=== PATIENT | female | born 2000 | race Hispanic/Latino ===

== ENCOUNTER 2018-04-19 08:56 | Emergency (ER) | payer SELFPAY ==
[2018-04-19 10:13] LABS: #Basophils 0.1 thou/uL (0.0-0.2); #Eosinphils 0.1 thou/uL (0.0-0.7); #Monocytes 0.5 thou/uL (0.11-0.59); #Neutrophils 6.2 thou/uL (1.40-6.50); %Basophils 1.1 % (0.0-1.0); %Eosinophils 1.6 % (0.0-10.0); %Lymphocytes 13.1 % (28.0-48.0); %Monocytes 6.3 % (0.0-4.0); Hemoglobin 6.9 g/dL (12.0-16.0); Mean Corpuscular HGB CONC 29.4 g/dL (32.0-36.0); Mean Corpuscular Hemoglobin 18.7 pg (25.0-35.0); Mean Corpuscular Volume 63.5 fL (78.0-98.0); Mean Platelet Volume 11.3 fL (7.4-10.4); Platelet Count 368 thou/uL (130-400); RBC Distribution Width 19.6 % (11.5-14.5); Red Blood Cell (RBC) Count 3.71 mill/uL (4.00-5.20)
[2018-04-19 10:25] LABS: Bilirubin Negative (Negative); Blood, Urine Negative (Negative); Glucose, Urine (Dipstick) Negative (Negative); Leukocyte Negative (Negative); Nitrite Negative (Negative); Protein, Urine (Dipstick) Negative (Neg-Trace); Urobilinogen 0.2 mg/dL (0.2-1.0)
[2018-04-19 10:27] LABS: Clarity Clear (Clear); Specific Gravity, Urine 1.007 (1.002-1.036)
[2018-04-19 10:33] LABS: Reflex for Review?? YES
[2018-04-19 10:34] LABS: Hypochromia MODERATE=16-30 cells (100X) (0-5/hpf); MDiff Complete? YES; Microcytosis MARKED = >30 cells (100X) (0-5/hpf); Ovalocytes SLIGHT = 2-5 cells (100X) (0-1/hpf); PLT Morphology Comment Appears Adequate; Polychromasia SLIGHT = 2-3 cells (100X) (0-2/hpf); Tear Drops SLIGHT = 2-5 cells (100X) (0-1/hpf)
[2018-04-19 10:36] LABS: ALT (SGPT) 8 U/L (8-55); AST (SGOT) 15 U/L (5-34); Alkaline Phosphatase 43 U/L (40-150); Anion Gap 13 mmol/L (10-20); BUN (Urea Nitrogen) 8 mg/dL (7.0-18.7); Bilirubin, Total 0.2 mg/dL (0.2-1.2); Calc. Creatinine Clearance 0 mL/min (70-130); Calcium 9.5 mg/dL (7.8-10.44); Carbon Dioxide 21 mmol/L (22-29); Chloride 106 mmol/L (98-107); Estimated GFR-MDRD Greater than 90; Globulin 3.1 g/dL (2.4-3.5); Glucose 110 mg/dL (70-105); Potassium 3.6 mmol/L (3.5-5.1); Protein, Total 7.1 g/dL (6.0-8.3); Sodium 136 mmol/L (136-145)
--- NOTE | 2018-04-19 10:49 | ULT ---
OB ULTRASOUND: HISTORY: Right-sided pelvic pain. DATE 04/19/18. FINDINGS: Multiple longitudinal and transverse images of the pelvis are obtained using a multihertz curvilinea r transducer. Real-time, color flow, and M-mode and spectral waveform Doppler analysis was used to e valuate the pelvis. Images demonstrate a viable intrauterine with the fetus in the cephalic presentation. The placenta is posterior. Biparietal diameter 31 mm, 15 weeks 5 days Head circumference 118 mm, 15 weeks 6 days Abdominal circumference 86 mm, 14 weeks 6 days Femur length 16 mm, 14 weeks 6 days Composite age equals 15 weeks 2 days with an estimated date of delivery of October 09, 2018. Cardiac activity measures 155 b.p.m. The placenta is posterior and the fetus is in the cephalic pres entation. IMPRESSION: 1. Viable intrauterine . 2. Visualization of the right ovary. The left ovary is not visualized. Cervical length measures 2. 9 cm. No evidence of placenta previa or abruption is seen. POS: [facility]
== END 2018-04-19 11:31 | disposition home or self-care (01) ==
LOC: ERS 08:56
DX: O99.89 Other specified diseases and conditions complicating pregnancy, childbirth and the puerperium (principal); R10.31 Right lower quadrant pain; F32.9 Major depressive disorder, single episode, unspecified; Z3A.15 15 weeks gestation of pregnancy
CPT/HCPCS: 36415; 76815; 80053; 81003; 84702; 85025; 85060; 87086

== ENCOUNTER 2018-04-30 09:29 | Emergency (ER) | payer MEDICAID, SELFPAY ==
[2018-04-30 10:21] LABS: Bilirubin Negative (Negative); Blood, Urine Negative (Negative); Clarity CLOUDY (Clear); Glucose, Urine (Dipstick) Negative (Negative); Leukocyte Large (Negative); Nitrite Negative (Negative); Protein, Urine (Dipstick) Negative (Neg-Trace); Urobilinogen 0.2 mg/dL (0.2-1.0); pH, Urine 5.5 (5.0-9.0)
[2018-04-30 10:24] LABS: Bacteria/HPF None Seen HPF (None Seen); Hyaline Casts/LPF 7-10 HYALINE CAST LPF (0-3 Hyaline); Pathc Cast-AUWi Flag 1.16 (0-2.49); RBC/HPF 0-3 HPF (0-3); WBC/HPF 21-50 HPF (0-3)
--- NOTE | 2018-04-30 10:47 | ULT ---
ULTRASOUND OBSTETRICAL COMPLETE: DATE: 04/30/18. HISTORY: A 18-year-old female for evaluation of anatomical detail. FINDINGS: number: Hernandez. lie: Cephalic. Maternal cervix: 3 cm and closed. Placenta: Posterior. No placenta previa. Amniotic fluid volume: Subjectively normal. KIRIT not measured. heart rate: 149 b.p.m. The following anatomy is visualized, with no evidence of anomalies: Spine, bladder, diaphragm, stomach, 3-vessel cord, and cord insertion. The rest of the anatomy is not well visualized. biometry: Head circumference (HC): 14.0 cm 17 w 2 d Biparietal diameter (BPD): 3.8 cm 17 w 4 d Abdominal circumference (AC): 11.2 cm 17 w 0 d Femur length (FL): 2.2 cm 16 w 3 d Average ultrasound age (AUA): 16 w 6 d Estimated date of delivery (TRI): 10/09/18. Last menstrual period (LMP): 01/02/18. Gestational age by LMP: 16 w 6 d Estimated weight (EFW): 171 g +/- 25 g. IMPRESSION: 1. Live early 2nd trimester intrauterine gestation. 2. Estimated gestational age of 16 weeks, 6 days. 3. Cephalic lie. KASI Ariza POS: [facility]
[2018-04-30 10:52] LABS: #Basophils 0.1 thou/uL (0.0-0.2); #Eosinphils 0.1 thou/uL (0.0-0.7); #Lymphocytes 1.4 thou/uL (1.20-3.40); #Monocytes 0.3 thou/uL (0.11-0.59); #Neutrophils 5.3 thou/uL (1.40-6.50); %Basophils 0.8 % (0.0-1.0); %Eosinophils 1.2 % (0.0-10.0); %Lymphocytes 19.2 % (28.0-48.0); %Monocytes 4.6 % (0.0-4.0); %Neutrophils 74.1 % (31.0-61.0); Hemoglobin 7.2 g/dL (12.0-16.0); Mean Corpuscular HGB CONC 30.2 g/dL (32.0-36.0); Mean Platelet Volume 10.6 fL (7.4-10.4); Platelet Count 369 thou/uL (130-400); RBC Distribution Width 19.6 % (11.5-14.5); Red Blood Cell (RBC) Count 3.78 mill/uL (4.00-5.20); White Blood Cell (WBC) Count 7.2 thou/uL (4.8-10.8)
[2018-05-02 20:01] LABS: Chlamydia by PCR Not Detected (NotDetected); GC by PCR Not Detected (NotDetected)
== END 2018-04-30 11:43 | disposition home or self-care (01) ==
LOC: ERS 09:29
DX: O23.42 Unspecified infection of urinary tract in pregnancy, second trimester (principal); O99.012 Anemia complicating pregnancy, second trimester; O99.342 Other mental disorders complicating pregnancy, second trimester; F32.9 Major depressive disorder, single episode, unspecified; Z3A.16 16 weeks gestation of pregnancy
CPT/HCPCS: 36415; 76815; 81003; 81015; 84702; 85025; 86900; 86901; 87086; 87480; 87491; 87510; 87591; 87660; 99284

== ENCOUNTER 2018-06-07 09:06 | Emergency (ER) | payer MEDICAID, OTHER ==
[2018-06-07 09:42] LABS: Bilirubin Negative (Negative); Blood, Urine Negative (Negative); Glucose, Urine (Dipstick) Negative (Negative); Leukocyte Moderate (Negative); Nitrite Negative (Negative); Protein, Urine (Dipstick) Negative (Neg-Trace); Specific Gravity, Urine 1.015 (1.005-1.030)
[2018-06-07 09:44] LABS: #Basophils 0.1 thou/uL (0.0-0.2); #Eosinphils 0.1 thou/uL (0.0-0.7); #Lymphocytes 1.5 thou/uL (1.20-3.40); #Monocytes 0.3 thou/uL (0.11-0.59); #Neutrophils 6.1 thou/uL (1.40-6.50); %Basophils 0.8 % (0.0-1.0); %Eosinophils 0.6 % (0.0-10.0); %Lymphocytes 18.6 % (28.0-48.0); %Monocytes 4.2 % (0.0-4.0); %Neutrophils 75.8 % (31.0-61.0); Hemoglobin 6.8 g/dL (12.0-16.0); Mean Corpuscular HGB CONC 30.6 g/dL (32.0-36.0); Mean Corpuscular Hemoglobin 19.2 pg (25.0-35.0); Mean Corpuscular Volume 62.5 fL (78.0-98.0); Mean Platelet Volume 9.8 fL (7.4-10.4); Platelet Count 380 thou/uL (130-400); RBC Distribution Width 18.3 % (11.5-14.5); Red Blood Cell (RBC) Count 3.53 mill/uL (4.00-5.20); White Blood Cell (WBC) Count 8.1 thou/uL (4.8-10.8)
[2018-06-07 09:48] LABS: Clarity Cloudy (Clear)
[2018-06-07] MEDS ORDERED: Acetaminophen 500 MG TAB ONE (09:53)
[2018-06-07] MEDS ORDERED: Ondansetron ODT 8 MG TAB ONE (09:53)
[2018-06-07 09:57] LABS: RBC/HPF 0-3 HPF (0-3)
[2018-06-07 09:58] LABS: Bacteria/HPF Rare-Few HPF (None Seen); Hyaline Casts/LPF 0-3 HYALINE CAST LPF (0-3 Hyaline); Renal Epithelial 0-3 HPF (0-3); Transitional Epithelial 0-3 HPF (0-3)
[2018-06-07 10:13] LABS: ALT (SGPT) 14 U/L (8-55); AST (SGOT) 18 U/L (5-34); Albumin 3.5 g/dL (3.5-5.0); Alkaline Phosphatase 48 U/L (40-150); Anion Gap 11 mmol/L (10-20); BUN (Urea Nitrogen) 6 mg/dL (7.0-18.7); Bilirubin, Total 0.3 mg/dL (0.2-1.2); Calc. Creatinine Clearance 0 mL/min (70-130); Calcium 8.5 mg/dL (7.8-10.44); Carbon Dioxide 23 mmol/L (22-29); Chloride 107 mmol/L (98-107); Estimated GFR-MDRD Greater than 90; Globulin 3.1 g/dL (2.4-3.5); Glucose 78 mg/dL (70-105); Lipase 32 U/L (8-78); Potassium 3.7 mmol/L (3.5-5.1); Protein, Total 6.6 g/dL (6.0-8.3); Sodium 137 mmol/L (136-145)
== END 2018-06-07 10:44 | disposition home or self-care (01) ==
LOC: ERS 09:06
DX: N39.0 Urinary tract infection, site not specified (principal); F32.9 Major depressive disorder, single episode, unspecified
CPT/HCPCS: 36415; 80053; 81003; 81015; 83690; 84702; 85025; 86900; 86901; 87086; 99284